=== PATIENT | female | born 1985 ===

== ENCOUNTER 2023-01-04 09:42 | Outpatient (AMB) | payer OTHER, SELFPAY ==
--- NOTE | 2023-01-04 10:09 | MHC.PC.OV ---
Vital Signs 01/04/23 10:11 Height 5 ft 3 in Weight 164 lb 2 oz BMI 29.1 BP 108/70 Blood Pressure Location Lt brachial Position Sitting Pulse 84 Pulse Source Pulse Oximeter Pulse Oximetry (%) 96 Oxygen Delivery Method Room Air Intake Visit Reasons: New patient-requesting physical Intake Note: pt is here to Est care pt does not want flu vaccine pt see's [facility] Is last menstrual period known: Yes (pt is coming off of the depo so she has had it for about a month ) Allergies No Known Allergies Allergy (Unknown, Unverified 01/04/23 10:29) Medication List - Last Reconciled 01/04/23 by Karmen Sesay MD No Known Home Meds Tobacco use date assessed: 01/04/23 Dental Screening Dental Screen Date: 01/04/23 Did you have a dental visit in the last 12 months?: No Did you have a dental problem in the last 6 months where you did not have access to dental care?: No Was dental information given to patient?: Patient has dentist HPI New patient-requesting physical HPI Details 37-year-old lady, new to practice, here to establish care with new PCP and for physical exam. Patient does not want to get flu vaccine, had 1 dose of COVID vaccine/Moderna, applying to get a booster. [facility] and [facility]. Was placed on Depo-Provera 3 months ago, but gained approximately 20 lb after she started getting the shots , and stopped using it approximately 4 weeks ago. Still not having irregular. , still having vaginal spotting see she stopped Depo injection. Complaining of urinary frequency and dysuria present for the last 2 days accompanied by lower abdominal pain. Being fever, no nausea or vomiting reported. Patient also complaining of sore throat mainly on the right side, saw white spots in her right tonsills. Complains of a painful mass in her right lower back which moves, gets worse when she bends or lifts anything heavy. Would like it to get it removed PENDING SALE TO [facility] Medical History (Updated 01/04/23 @ 11:18 by Karmen Sesay MD) Generalized anxiety disorder Mass of subcutaneous tissue of back UTI (urinary tract infection) History of anemia Overweight (BMI 25.0-29.9) Surgical History (Updated 01/04/23 @ 10:41 by Karmen Sesay MD) No pertinent past surgical history Family History (Updated 01/04/23 @ 10:49 by Karmen Sesay MD) Maternal Aunt Generalized anxiety disorder Mother Generalized anxiety disorder Maternal Aunt Breast cancer, Onset Age: 45 Social History (Updated 01/04/23 @ 10:36 by Karmen Sesay MD) Housing: Apartment Alcohol intake: current Alcohol intake frequency: holidays/special occasions only Alcohol type: wine Patient Tobacco Use Status: Former Tobacco user Quit Date: 7 years ago e-Cigarette/Vaping Use: Never Used Second Hand Smoke Exposure: No Substance Use Type: Marijuana service: No Current occupational status: employed Current occupation: [employer] Current occupational exposures/hazards: No Cognitive needs: No Hearing needs: No Vision needs: No Female Reproductive History Menstrual control method: permanent sterilization Permanent Sterilization: Vasectomy Other: Has been off Depo a month ago, does not want to be on it due to weight gain, still having spotting since stopping the medication Questionnaire PHQ-9 Over the last 2 weeks, how often have you been bothered by any of the following problems? 1. Little interest or pleasure in doing things: not at all 2. Feeling down, depressed, or hopeless: not at all 3. Trouble falling or staying asleep, or sleeping too much: several days 4. Feeling tired or having little energy: not at all 5. Poor appetite or overeating: not at all 6. Feeling bad about yourself - or that you are a failure or have let yourself or your family down: not at all 7. Trouble concentrating on things, such as reading the newspaper or watching television: not at all 8. Moving or speaking so slowly that other people could have noticed. Or the opposite - being so fidgety or restless that you have been moving around a lot more than usual: not at all 9. Thoughts that you would be better off or of hurting yourself in some way: not at all Total score: 1 Depression Screening Interpretation: Negative Depression Screening Done: Yes Source: Developed by Drs. Carlos Koenig, Alysha Finnegan, Ismael Jones and colleagues, with an educational david from [employer]. Thrive Questionnaire Date Thrive assessed: 01/04/23 I am a: Patient What is your living situation today?: I have a steady place to live Within the past 12 months, did the food you bought not last and you didn't have the money to get more?: Never true Within the past 12 months, did you worry whether your food would run out before you got money to buy more?: Never true Do you have trouble paying for medicines?: No Do you have trouble getting transportation to medical appointments?: No Do you have trouble paying your heating and electricity bill?: No Do you have trouble taking care of your child, family member or friend?: No Do you have trouble with day-to-day activities such as bathing, preparing meals, shopping, managing finances, etc.?: No Are you currently unemployed and looking for a job?: No Are you interested in more education?: No Please select the resources that you would like help with: None AUDIT C Alcohol Use Questionnaire (AUDIT-C) 1. How often do you have a drink containing alcohol?: Monthly or less 2. How many drinks containing alcohol do you have on a typical day when you are drinking?: 1 or 2 3. How often do you have six or more drinks on one occasion?: Never Total Score: 1 Score Reviewed/Action Taken: Yes NGUYEN-7 AMB Questionnaire NGUYEN-7 Date NUGYEN - 7 assessed: 01/04/23 Feeling nervous, anxious, or on edge: 2 = More than half the days Not being able to stop or control worryin = Several days Worrying too much about different things: 1 = Several days Trouble relaxin = Several days Being so restless that it is hard to sit still: 0 = Not at all Becoming easily annoyed or irritable: 1 = Several days Feeling afraid as if something awful might happen: 0 = Not at all Total NGUYEN-7 score (0-4 normal; 5-9 mild; 10-14 moderate; 15-21 severe): 6 Source: Developed by Drs. Carlos Koenig, Alysha Finnegan, Ismael Jones and colleagues, with an educational david from [employer] NGUYEN-7 Assessment Billing NGUYEN-7 Assessment Tool: NGUYEN-7 Assessment 44197 Review of Systems Const Denies body aches, Denies fatigue, Denies fever(s), Denies headache(s) and Denies weakness Eyes Denies change in vision, Denies eye discharge and Denies itchy eyes ENT Denies dizziness, Denies headache(s), Denies nasal congestion, Denies nasal discharge and Denies sore throat Card Denies chest pain, Denies lightheadedness, Denies palpitations and Denies dyspnea Resp Denies chest congestion, Denies cough, Denies dyspnea and Denies wheezing GI Denies abdominal pain, Denies change in bowel habits and Denies heartburn Reports no additional complaints and Reports as per HPI Musc Reports as per HPI Skin/Breast Denies breast pain, Denies breast mass, Denies lesions and Denies rash Neuro Denies dizziness, Denies headache(s) and Denies weakness Psych Reports as per HPI Endo Denies fatigue, Denies polydipsia, Denies polyuria and Denies palpitations Nik/Lymph Denies easy bruising Aller/Immun Denies itchy eyes, Denies seasonal rhinorrhea and Denies wheezing Physical exam (Primary Care) Vital Signs: Last Vital Signs Pulse 84 01/04/23 10:11 BP 108/70 01/04/23 10:11 Pulse Ox 96 01/04/23 10:11 Oxygen Delivery Method Room Air 01/04/23 10:11 BMI result Body Mass Index 29.1 Tobacco/Smoking Status: Tobacco use Status Tobacco use date assessed 01/04/23 01/04/23 10:14 Patient Tobacco Use Status Former Tobacco user 01/04/23 10:36 e-Cigarette/Vaping Use Never Used 01/04/23 10:36 PHQ-9: PHQ-9 Score PHQ-9: Total score 1 01/04/23 11:07 Depression Screening Interpretation: Negative Thrive Assessment: Date of Thrive Assessment Date Thrive assessed 01/04/23 01/04/23 10:45 Const General: no acute distress and alert Nutritional Appearance: overweight Orientation/consciousness: patient oriented x3 HENMT Head: Yes normocephalic and Yes atraumatic Ears: external ears normal, TM's normal bilaterally and EAC's normal General nose exam: Normal external nose present and No nasal discharge present Face and sinus: Yes face symmetric Mouth: Normal oral and palatal mucosa present, lip normal, tongue normal, oropharynx normal and moist mucous membranes Throat: Yes abnormal tonsil (Slight erythema and faint white spots on right tonsil, negative strep) Eyes General: appearance normal, both eyes and all related structures Eyelids: Yes eyelids normal Conjunctivae: conjunctivae normal Sclerae: sclerae normal Pupils: Equal, round and reactive pupils present EOM: EOMs intact bilaterally Neck Neck: Yes full ROM, Yes no lymphadenopathy and Yes supple Thyroid: Thyroid normal Chest Chest palpation & inspection: normal inspection of the chest Breast/axilla inspection: normal inspection of the breasts Breast/axilla palpation: normal palpation of the breasts Resp Effort & Inspection: normal respiratory effort and able to speak in complete sentences Auscultation: clear to auscultation bilaterally Cardio Rate: regular rate Rhythm: regular rhythm Heart sounds: S1 normal heart sound present and S2 normal heart sound present GI Palpation (GI): Soft to palpation, Tenderness to palpation present (GI) (Suprapubic area), no guarding and no masses Auscultation: normal bowel sounds General: Yes no CVA tenderness Back/Spine/Pelvis Back: no CVA tenderness and No back tenderness Skin General skin exam: no rashes or lesions noted Neuro General: patient oriented x3, gait normal, moves all extremities, Normal light touch and pain sensation, no focal motor deficits and CN's II-XI intact bilaterally Cranial nerves: Yes Equal, round and reactive pupils present Cognition (Neuro): normal cognition Gait exam (Neuro): Normal gait present Motor exam (neuro): 5/5 motor strength present throughout Extrem General: Yes normal to inspection, Yes full ROM, Yes no joint enlargement, Yes no pedal edema and Yes normal gait Psych Appearance: grossly normal and well kempt Mental Status: mental status grossly normal Speech and movement: Normal speech and movement present Affect: normal affect Attitude: cooperative Thought process: Normal thought process present Thought content: Normal thought content present Insight: Good insight present (Psych) Judgement: Good judgement present (Psych) Results AMB Rapid Strep AMB Rapid Strep Negative Last Edit by Mely Hinds CMA on 01/04/23 11:03 AMB Urinalysis, Automated UA Leukoctes 125 Opal/uL Last Edit by Mely Hinds CMA on 01/04/23 11:06 UA Nitrite Negative Last Edit by Mely Hinds CMA on 01/04/23 11:06 UA Urobilinogen 0.2 mg/dL Last Edit by Mely Hinds CMA on 01/04/23 11:06 UA Protein 15 mg/dL Last Edit by Mely Hinds, ANTONIO on 01/04/23 11:06 UA pH 7.0 Last Edit by Mely Hinds, ANTONIO on 01/04/23 11:06 UA Blood 200 Quentin/uL Last Edit by Mely Hinds, ANTONIO on 01/04/23 11:06 UA Specific Sutton 1.015 Last Edit by Mely Hinds, ANTONIO on 01/04/23 11:06 UA Ketone Negative Last Edit by Mely Hinds, [employer] FACULTY MEMBER on 01/04/23 11:06 UA Bilirubin 0 mg/dL Last Edit by Mely Hinds, ANTONIO on 01/04/23 11:06 UA Glucose 0 mg/dL Last Edit by Mely Hinds, ANTONIO on 01/04/23 11:06 Results Reviewed Results Reviewed: Laboratory Last Values Urine pH (Auto) 7.0 01/04/23 11:03 Specific Sutton (Auto) 1.015 01/04/23 11:03 Urine Protein (Auto) 15 mg/dL 01/04/23 11:03 Glucose (UA)(Auto) 0 mg/dL 01/04/23 11:03 Urine Ketones (Auto) Negative 01/04/23 11:03 Urine Blood (Auto) 200 Quentin/uL 01/04/23 11:03 Urine Nitrite (Auto) Negative 01/04/23 11:03 Urine Bilirubin (Auto) 0 mg/dL 01/04/23 11:03 Urine Urobilinogen (Auto) 0.2 mg/dL 01/04/23 11:03 Leukocyte Esterase (Auto) 125 Opal/uL 01/04/23 11:03 Strep Scn Rapid Clinic Negative 01/04/23 11:03 Assessment and Plan Assessment & Plan (1) Adult general medical exam: Code(s): Z00.00 - Encounter for general adult medical examination without abnormal findings Plan: Will check appropriate labs. Continue regular dental visit every 6 months and regular eye exams, at least every 2 years. Take adequate calcium in diet and vitamin-D 3 at 2000 IU per cap once a day, in addition to weight-bearing exercises to help maintain good muscle tone and weight control. Instructed to do self-breast exam, and recommended to get yearly mammogram, starting at age 40. Does not want to get flu shot, will schedule appointment for to get her COVID booster, up-to-date with her Tdap, patient states she got it from her [facility]. She gets her cervical cancer screening and routine Pap done at [facility] (2) Dysuria: Code(s): R30.0 - Dysuria (3) Urinary frequency: Code(s): R35.0 - Frequency of micturition (4) Mass of subcutaneous tissue of back: Code(s): R22.2 - Localized swelling, mass and lump, trunk Plan: Referred to general surgery for evaluation and possible excision of mass (5) UTI (urinary tract infection): Code(s): N39.0 - Urinary tract infection, site not specified Plan: Started on Bactrim DS 1 tablet every 12 hours for 10 days. Drink plenty of water, return to clinic if no improvement of symptoms (6) Encounter for vitamin deficiency screening: Code(s): Z13.21 - Encounter for screening for nutritional disorder (7) Generalized anxiety disorder: Code(s): F41.1 - Generalized anxiety disorder (8) Sore throat (viral): Code(s): J02.8 - Acute pharyngitis due to other specified organisms; B97.89 - Other viral agents as the cause of diseases classified elsewhere Plan: Rapid strep test came back negative. Advised to do so in gargles, ibuprofen as needed for pain Orders: Orders Vitamin D 25-OH Total Today Z13.21 - Encounter for screening for nutritional disorder AMB Rapid Strep Screen Today Z13.9 - Encounter for screening, unspecified Lipid Panel Today Z00.00 - Encounter for general adult medical examination without abnormal findings Glucose Fasting Today Z00.00 - Encounter for general adult medical examination without abnormal findings UA CC w/rflx Micro + Cult Today R30.0 - Dysuria, R35.0 - Frequency of micturition Complete Blood Count Auto Diff Today Z86.2 - Personal history of diseases of the blood and blood-forming organs and certain disorders involving the immune mechanism AMB Urinalysis Automated Today N39.0 - Urinary tract infection, site not specified Referrals General Surgery Referral R22.2 - Localized swelling, mass and lump, trunk Medications: New sulfamethoxazole-trimethoprim 800-160 mg (Bactrim DS) 1 tab PO Q12H 20 tabs 0RF 10 days N39.0 - Urinary tract infection, site not specified Coding Level of Care Code New Pt Prev Care 18-39yr(46076 Diagnoses Adult general medical exam Z00.00 Dysuria R30.0 Urinary frequency R35.0 Mass of subcutaneous tissue of back R22.2 UTI (urinary tract infection) N39.0 Encounter for vitamin deficiency screening Z13.21 Generalized anxiety disorder F41.1 Sore throat (viral) J02.8; B97.89 Additional Codes NGUYEN-7 Assessment Billing - NGUYEN-7 Assessment Tool: NGUYEN-7 Assessment 85999 ([id number])
[2023-01-04 10:11] VITALS: BP 108/70; PULSE 84; O2SAT 96; BMI 29.1
== END 2023-01-04 11:25 | disposition home or self-care (01) ==
PROVIDERS: Visit Provider Internal Medicine
DX: Z00.00 Encounter for general adult medical examination without abnormal findings (principal); R30.0 Dysuria; R35.0 Frequency of micturition; J02.9 Acute pharyngitis, unspecified; R22.2 Localized swelling, mass and lump, trunk; N39.0 Urinary tract infection, site not specified; Z13.21 Encounter for screening for nutritional disorder; F41.1 Generalized anxiety disorder; J02.8 Acute pharyngitis due to other specified organisms; B97.89 Other viral agents as the cause of diseases classified elsewhere
CPT/HCPCS: 81003; 87880; 99385

== ENCOUNTER 2023-01-04 11:09 | Outpatient (REF) | payer OTHER, SELFPAY ==
[2023-01-04 13:16] LABS: MANUAL DIFF FLAG NO
[2023-01-04 13:22] LABS: Basophils Percent Auto 0.2 % (0-2); Eosinophils Absolute Auto 0.1 X10*3/uL (0.0-0.4); Eosinophils Percent Auto 0.5 % (0-4); Hemoglobin 12.8 g/dl (12.0-16.0); Imm Gran Abs Auto 0.03 X10*3/uL (0.00-0.03); Imm Gran Pct Auto 0.3 % (0.0-0.4); Lymphocytes Absolute Auto 1.5 X10*3/uL (1.2-4.9); Lymphocytes Percent Auto 15.8 % (20-40); Mean Platelet Volume 11.6 fL (9.4-12.3); Monocytes Absolute Auto 0.5 X10*3/uL (0.1-1.2); Monocytes Percent Auto 5.6 % (2-11); Neutrophils Absolute Auto 7.5 x10*3/uL (2.0-8.3); Neutrophils Percent Auto 77.6 % (45-73); Platelet Count 285 X10*3/uL (160-400); White Blood Count 9.7 X10*3/uL (4.8-10.8)
[2023-01-04 13:44] LABS: Appearance Urine Cloudy; Color Urine Yellow; Glucose Urine UA Negative (Negative); Leukocyte Esterase Urine Moderate (2+) (Negative); Nitrite Urine Negative (Negative); PH 7.5 (5.0-9.0); Specific Gravity - Urine 1.015 (1.005-1.025); UMIC TRIGGER UACC YES; Urine Blood Large (3+) (Negative); Urine Ketones Negative (Negative); Urine Protein Trace mg/dL (Neg-Trace)
[2023-01-04 14:00] LABS: Bacteria Urine 4+ (None Seen); Hyaline Casts Urine 0-2 /LPF (0-2); RBC Urine 0-2 /HPF (0-2); Squamous Epithelial Cell Urine 0-2 /HPF (0-2); UACC Culture Trigger YES; WBC Urine >50 /HPF (0-5)
[2023-01-04 14:43] LABS: Cholesterol 158 mg/dL (<200); Glucose Fasting 80 mg/dL (60-99); HDL Cholesterol 51 mg/dL (>40); LDL Cholesterol Calculated 89 mg/dL (<100); Triglycerides 91 mg/dL (<150)
[2023-01-04 14:46] LABS: Vitamin D 25-OH Total 21.8 ng/mL (>30)
== END 2023-01-04 11:10 | disposition home or self-care (01) ==
LOC: HO.HMGCLDS 11:09
PROVIDERS: PCP Internal Medicine; Visit Provider Internal Medicine
DX: Z00.00 Encounter for general adult medical examination without abnormal findings (principal); N39.0 Urinary tract infection, site not specified; Z86.2 Personal history of diseases of the blood and blood-forming organs and certain disorders involving the immune mechanism; Z13.21 Encounter for screening for nutritional disorder
CPT/HCPCS: 36415; 80061; 81001; 82306; 82947; 85025; 87086; 87088; 87186

== ENCOUNTER 2023-01-15 08:58 | Outpatient (AMB) | payer OTHER, SELFPAY ==
[2023-01-15 09:00] VITALS: BP 109/62; PULSE 77; BMI 29.8
--- NOTE | 2023-01-15 09:00 | MHC.OFFVIS ---
Intake Vital Signs 01/15/23 09:00 Height 5 ft 3 in Weight 168 lb BMI 29.8 BP 109/62 Blood Pressure Location Rt brachial Position Sitting Pulse 77 Intake Visit Reasons: Nodular mass~Lt lower back Intake Note: Patient here for nodular mass on lt lower back. Has been present for 2yrs. C/o nerve pinching at it and is painful. 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 She has had this several years time. His increasing size, become more symptomatic. SHe wished to have it excised. Chart was reviewed patient evaluated [facility] Medical History Generalized anxiety disorder Mass of subcutaneous tissue of back UTI (urinary tract infection) History of anemia Overweight (BMI 25.0-29.9) Surgical History No pertinent past surgical history Family History Maternal Aunt Generalized anxiety disorder Mother Generalized anxiety disorder Maternal Aunt Breast cancer, Onset Age: 45 Social History Housing: Apartment Alcohol intake: current Alcohol intake frequency: holidays/special occasions only Alcohol type: wine Patient Tobacco Use Status: Former Tobacco user Quit Date: 7 years ago e-Cigarette/Vaping Use: Never Used Second Hand Smoke Exposure: No Substance Use Type: Marijuana service: No Current occupational status: employed Current occupation: [employer] Current occupational exposures/hazards: No Cognitive needs: No Hearing needs: No Vision needs: No Physical Exam Vital Signs: Last Vital Signs Pulse 77 01/15/23 09:00 BP 109/62 01/15/23 09:00 BMI result Body Mass Index 29.8 Back/Spine/Pelvis Other: Back exam is most noteworthy for approximately 4 x 3 cm left lower back lipoma. Office Procedures Excision Details: Risks, benefits, alternatives of excision of left the back lipoma reviewed with the patient included but not limited to bleeding, infection, recurrence, numbness, pain, scarring, wound dehiscence, seroma and the patient wishes to proceed. All questions were answered. After appropriate positioning, patient underwent 1% lidocaine and Betadine prep and a transverse incision was made over the lipoma of the left lower back. Uneventful enucleation of a lipoma measuring approximately 4 x 3 cm was uneventfully enucleated. Specimen sent to pathology. Wounds irrigated, secured hemostasis, and closed using running subcuticular 3-0 Vicryl suture followed by Steri-Strips and sterile dressings. Patient tolerated procedure well. 77123-hinnt/arms/legs 3.1-4cm Procedure code (CPT) selection complete Office Meds lidocaine 1 %-epinephrine 1:100,000 injection solution Performing Provider: Indra Majano MD Performing Location: [facility] General Surgeons Administered by: Indra Majano MD on 01/15/23 09:40 Dose Route Admin Location Dispensed Lot Number Expiration Date [facility] Pest Control Service Technician 30 mL Infiltration 30 mL Assessment & Plan Assessment & Plan (1) Mass of subcutaneous tissue of back: Code(s): R22.2 - Localized swelling, mass and lump, trunk Plan: Patient has been given local instructions including avoiding strenuous activities for next week, ice to the wound p.r.n., may shower in 2 days removing only outside dressing leaving Steri-Strips intact. . Patient will see me as directed or p.r.n.. Orders: Orders AMB Excision Today R22.2 - Localized swelling, mass and lump, trunk Coding Level of Care Code New Pt Level 4 (08476) Diagnoses Mass of subcutaneous tissue of back R22.2 CPT Codes Trunk/Arms/Legs - CPT: 74576-xdjlf/arms/legs 3.1-4cm ([id number])
== END 2023-01-15 09:41 | disposition home or self-care (01) ==
PROVIDERS: PCP Internal Medicine; Referring Provider Internal Medicine; Visit Provider Surgery
DX: R22.2 Localized swelling, mass and lump, trunk (principal); D17.1 Benign lipomatous neoplasm of skin and subcutaneous tissue of trunk
CPT/HCPCS: 11406; 99204

== ENCOUNTER 2023-01-15 08:58 | Outpatient (REF) | payer OTHER, SELFPAY | END 2023-01-15 08:59 | disposition home or self-care (01) | LOC: HO.LNP 08:58 | PROVIDERS: PCP Internal Medicine; Referring Provider Internal Medicine; Visit Provider Surgery | DX: R22.2 Localized swelling, mass and lump, trunk (principal) | CPT/HCPCS: 11406; 88304 ==

== ENCOUNTER 2023-01-22 13:50 | Outpatient (AMB) | payer OTHER, SELFPAY ==
[2023-01-22 13:54] VITALS: BP 117/56; PULSE 88; BMI 29.6
--- NOTE | 2023-01-22 13:54 | A.OFFVIS_ITS ---
Intake Vital Signs 01/22/23 13:54 Height 5 ft 3 in Weight 167 lb BMI 29.6 BP 117/56 L Blood Pressure Location Rt brachial Position Sitting Pulse 88 Intake Visit Reasons: S/p Nodular mass~Lt lower back Intake Note: Patient here s/p exc on lower back. C Allergies No Known Allergies Allergy (Unknown, Unverified 01/22/23 13:56) HPI HPI Comments History of Present Illness Details Patient presents for follow-up. She has no wound issues or complaints. Pathology is benign. [facility] Medical History Generalized anxiety disorder Mass of subcutaneous tissue of back UTI (urinary tract infection) History of anemia Overweight (BMI 25.0-29.9) Surgical History No pertinent past surgical history Family History Maternal Aunt Generalized anxiety disorder Mother Generalized anxiety disorder Maternal Aunt Breast cancer, Onset Age: 45 Social History Housing: Apartment Alcohol intake: current Alcohol intake frequency: holidays/special occasions only Alcohol type: wine Patient Tobacco Use Status: Former Tobacco user Quit Date: 7 years ago e-Cigarette/Vaping Use: Never Used Second Hand Smoke Exposure: No Substance Use Type: Marijuana service: No Current occupational status: employed Current occupation: [employer] Current occupational exposures/hazards: No Cognitive needs: No Hearing needs: No Vision needs: No Physical Exam Vital Signs: Last Vital Signs Pulse 88 01/22/23 13:54 BP 117/56 L 01/22/23 13:54 BMI result Body Mass Index 29.6 Back/Spine/Pelvis Other: Wound healing very well, clean dry and intact. Assessment & Plan Assessment & Plan (1) Lipoma: Code(s): D17.9 - Benign lipomatous neoplasm, unspecified Plan Patient has been given local instructions, and will follow-up p.r.n. Coding Level of Care Code Global (56898) Diagnoses Lipoma D17.9
== END 2023-01-22 13:58 | disposition home or self-care (01) ==
PROVIDERS: PCP Internal Medicine; Visit Provider Surgery
DX: D17.9 Benign lipomatous neoplasm, unspecified (principal)
CPT/HCPCS: 99024

== ENCOUNTER → 2023-01-22 13:50 | Outpatient (BNVA) | payer OTHER, SELFPAY | PROVIDERS: PCP Internal Medicine; Visit Provider Surgery ==

== ENCOUNTER 2023-08-14 09:45 | Outpatient (AMB) | payer MEDICAID, SELFPAY ==
[2023-08-14 10:17] VITALS: BP 106/64; PULSE 74; TEMP 36.9; O2SAT 98
--- NOTE | 2023-08-14 10:17 | AM.OFFWIN_ITS ---
Intake Vital Signs 3 08/14/23 10:17 Height 5 ft 3 in BP 106/64 Blood Pressure Location Rt brachial Position Sitting Pulse 74 Pulse Source Pulse Oximeter Temp 98.5 F Temp Source Temporal Artery Scan Pulse Oximetry (%) 98 Intake Visit Reasons: EST/uti(lobby) Intake Note: pt is here for possible uti Patient Tobacco Use Status: Former Tobacco user Quit Date: 7 years ago Allergies No Known Allergies Allergy (Unknown, Verified 08/14/23 10:18) Medication List - Last Reconciled 08/14/23 by Marjorie Stallworth MD No Known Home Meds Do you need a note to return to daycare/school/sports/work: Yes HPI EST/uti(lobby) 2 HPI0 Details Patient is a 38 year female came in today to be evaluated for possible bladder kidney infection She said the symptoms started 3 weeks ago but she was trying to treat herself at home by drinking plenty of water But last night she woke up with fever and chills and back pain So decided to come in Patient has flank pain left more than right UA is positive for leuk esterase I am treating her for possible pyelonephritis With Levaquin 750 mg once a day for 10 days We will send in urine for culture Patient was also advised to repeat UA after finishing antibiotic. [facility] Medical History Generalized anxiety disorder UTI (urinary tract infection) History of anemia Overweight (BMI 25.0-29.9) Surgical History Mass of subcutaneous tissue of back No pertinent past surgical history Family History Maternal Aunt Generalized anxiety disorder Mother Generalized anxiety disorder Maternal Aunt Breast cancer, Onset Age: 45 Social History Housing: Apartment Alcohol intake: current Alcohol intake frequency: holidays/special occasions only Alcohol type: wine Patient Tobacco Use Status: Former Tobacco user Quit Date: 7 years ago e-Cigarette/Vaping Use: Never Used Second Hand Smoke Exposure: No Substance Use Type: Marijuana service: No Current occupational status: employed Current occupation: [employer] Current occupational exposures/hazards: No Cognitive needs: No Hearing needs: No Vision needs: No Review of Systems Const All systems reviewed & are unremarkable except as noted in HPI and below Physical Exam Vital Signs: Last Vital Signs Temp 98.5 F 08/14/23 10:17 Pulse 74 08/14/23 10:17 BP 106/64 08/14/23 10:17 Pulse Ox 98 08/14/23 10:17 Const General: no acute distress Orientation/consciousness: patient oriented x3 Eyes General: appearance normal, both eyes and all related structures Resp Effort & Inspection: normal respiratory effort and able to speak in complete sentences Back/Spine/Pelvis Back/spine/pelvis image: 2 1. Tender to percussion Neuro General: patient oriented x3 Psych Mental Status: mental status grossly normal Results AMB Urinalysis, Automated 2 UA Leukoctes 70 Opal/uL Last Edit by Carmelo Aaron CMA on 08/14/23 10:23 UA Nitrite Negative Last Edit by Carmelo Aaron CMA on 08/14/23 10:23 UA Urobilinogen 0.2 mg/dL Last Edit by Carmelo Aaron CMA on 08/14/23 10 :23 UA Protein 15 mg/dL Last Edit by Carmelo Aaron CMA on 08/14/23 10:23 UA pH 6.0 Last Edit by Carmelo Aaron CMA on 08/14/23 10:23 UA Blood 0 Quentin/uL Last Edit by Carmelo Aaron CMA on 08/14/23 10:23 UA Specific [place] 1.030 Last Edit by Carmelo Aaron CMA on 08/14/23 10:23 UA Ketone Positive Last Edit by Carmelo Aaron CMA on 08/14/23 10:23 UA Bilirubin 1 mg/dL Last Edit by Carmelo Aaron CMA on 08/14/23 10:23 UA Glucose 0 mg/dL Last Edit by Carmelo Aaron CMA on 08/14/23 10:23 Results Reviewed Results Reviewed: Laboratory Last Values Urine pH (Auto) 6.0 08/14/23 10:22 Specific [place] (Auto) 1.030 08/14/23 10:22 Urine Protein (Auto) 15 mg/dL 08/14/23 10:22 Glucose (UA)(Auto) 0 mg/dL 08/14/23 10:22 Urine Ketones (Auto) Positive 08/14/23 10:22 Urine Blood (Auto) 0 Quentin/uL 08/14/23 10:22 Urine Nitrite (Auto) Negative 08/14/23 10:22 Urine Bilirubin (Auto) 1 mg/dL 08/14/23 10:22 Urine Urobilinogen (Auto) 0.2 mg/dL 08/14/23 10:22 Leukocyte Esterase (Auto) 70 Opal/uL 08/14/23 10:22 Assessment & Plan Assessment & Plan (1) Acute pyelonephritis: Code(s): N10 - Acute pyelonephritis Plan Patient is a 38 year female came in today to be evaluated for possible bladder kidney infection She said the symptoms started 3 weeks ago but she was trying to treat herself at home by drinking plenty of water But last night she woke up with fever and chills and back pain So decided to come in Patient has flank pain left more than right UA is positive for leuk esterase I am treating her for possible pyelonephritis With Levaquin 750 mg once a day for 10 days We will send in urine for culture Patient was also advised to repeat UA after finishing antibiotic. Orders: Orders 2 Urine Culture Today Marjorie Stallworth MD N10 - Acute pyelonephritis AMB Urinalysis Automated Today Sierra Francisco NP Z13.9 - Encounter for screening, unspecified UA CC w/rflx Micro + Cult 10 Days Marjorie Stallworth MD N10 - Acute pyelonephritis Medications: New 2 levofloxacin no exercise while taking this medication especially running and jogging 500 mg (0.6667 x 750 mg) PO DAILY 10 days 10 tabs 0RF Marjorie Stallworth MD Coding Level of Care Code Est Pt Level 4 (21976) Diagnoses Acute pyelonephritis N10
== END 2023-08-14 10:51 | disposition home or self-care (01) ==
PROVIDERS: PCP Internal Medicine; Visit Provider Internal Medicine
DX: N10 Acute pyelonephritis (principal)
CPT/HCPCS: 81003; 99214

== ENCOUNTER 2023-08-14 13:41 | Outpatient (REF) | payer MEDICAID, SELFPAY ==
[2023-08-14 13:54] LABS: Appearance Urine Turbid; Color Urine Yellow; Glucose Urine UA Negative (Negative); Leukocyte Esterase Urine Small (1+) (Negative); Nitrite Urine Negative (Negative); Specific Gravity - Urine >= 1.030 (1.005-1.025); UMIC TRIGGER UACC YES; Urine Blood Negative (Negative); Urine Ketones Negative (Negative); Urine Protein Negative (Neg-Trace)
[2023-08-14 13:58] LABS: Bacteria Urine 4+ (None Seen); Hyaline Casts Urine 0-2 /LPF (0-2); RBC Urine 0-2 /HPF (0-2); UACC Culture Trigger YES; WBC Urine 0-5 /HPF (0-5)
== END 2023-08-14 13:42 | disposition home or self-care (01) ==
LOC: HO.LNP 13:41
PROVIDERS: Visit Provider Internal Medicine
DX: Z13.9 Encounter for screening, unspecified (principal)
CPT/HCPCS: 81001; 87086; 87088; 87186

== ENCOUNTER 2023-10-22 11:29 | Outpatient (AMB) | payer OTHER, SELFPAY ==
--- NOTE | 2023-10-22 11:35 | A.OFFPC_ITS ---
Vital Signs 10/22/23 11:36 Height 5 ft 3 in Weight 152 lb BMI 26.9 BP 100/64 Blood Pressure Location Lt brachial Position Sitting Pulse 87 Pulse Source Pulse Oximeter Pulse Oximetry (%) 95 Oxygen Delivery Method Room Air Intake Visit Reasons: numbness R side hand Intake Note: Pt is here today c/o Rt hand numbness and Lt thumb numbness no injury noted Allergies No Known Allergies Allergy (Unknown, Verified 10/22/23 12:12) Medication List - Last Reconciled 10/22/23 by Karmen Sesay MD No Known Home Meds Tobacco use date assessed: 10/22/23 Dental Screening Dental Screen Date: 10/22/23 Did you have a dental visit in the last 12 months?: No Did you have a dental problem in the last 6 months where you did not have access to dental care?: No Was dental information given to patient?: Patient has dentist HPI numbness R side hand HPI Details 38-year-old lady here today complaining pain stiffness in her right wrist, with numbness and tingling radiating up to the middle fingers of her right hand and ups to elbow. He has also been having intermittent episodes of pain left thumb on hyperextension. These episodes have been present now for the last several months and seems to be getting worse. 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 Has tried Tylenol and Motrin which affords only temporary relief. [facility] Medical History (Updated 10/22/23 @ 12:17 by Karmen Sesay MD) Trigger thumb, left thumb Numbness and tingling in right hand Generalized anxiety disorder UTI (urinary tract infection) History of anemia Overweight (BMI 25.0-29.9) Surgical History Mass of subcutaneous tissue of back No pertinent past surgical history Family History Maternal Aunt Generalized anxiety disorder Substance use disorder Mother Generalized anxiety disorder Maternal Aunt Breast cancer, Onset Age: 45 Mental health disorder Maternal Uncle Substance use disorder Mental health disorder Social History Housing: Apartment Alcohol intake: current Alcohol intake frequency: holidays/special occasions only Alcohol type: wine Patient Tobacco Use Status: Current everyday Tobacco user Tobacco use type: Cigarette e-Cigarette/Vaping Use: Never Used Second Hand Smoke Exposure: No Substance Use Type: Marijuana service: No Current occupational status: employed Current occupation: [employer] Current occupational exposures/hazards: No Cognitive needs: No Hearing needs: No Vision needs: No Questionnaire PHQ-9 Over the last 2 weeks, how often have you been bothered by any of the following problems? 1. Little interest or pleasure in doing things: not at all 2. Feeling down, depressed, or hopeless: not at all 3. Trouble falling or staying asleep, or sleeping too much: not at all 4. Feeling tired or having little energy: not at all 5. Poor appetite or overeating: not at all 6. Feeling bad about yourself - or that you are a failure or have let yourself or your family down: not at all 7. Trouble concentrating on things, such as reading the newspaper or watching television: not at all 8. Moving or speaking so slowly that other people could have noticed. Or the opposite - being so fidgety or restless that you have been moving around a lot more than usual: not at all 9. Thoughts that you would be better off or of hurting yourself in some way: not at all Total score: 0 Depression Screening Interpretation: Negative Depression Screening Done: Yes 01261 - PHQ-9 Billing: Yes Source: Developed by Drs. Carlos Koenig, Alysha Finnegan, Ismael Jones and colleagues, with an educational david from [employer]. Thrive Questionnaire Date Thrive assessed: 10/22/23 I am a: Patient What is your living situation today?: I have a steady place to live Within the past 12 months, did the food you bought not last and you didn't have the money to get more?: Never true Within the past 12 months, did you worry whether your food would run out before you got money to buy more?: Sometimes True Do you have trouble paying for medicines?: No Do you have trouble getting transportation to medical appointments?: No Do you have trouble paying your heating and electricity bill?: No Do you have trouble taking care of your child, family member or friend?: No Do you have trouble with day-to-day activities such as bathing, preparing meals, shopping, managing finances, etc.?: No Are you currently unemployed and looking for a job?: No Are you interested in more education?: No Please select the resources that you would like help with: Housing/Nursing Home Currently or been in a relationship where the following occur: No concerns reported THRIVE Score: 1 AUDIT C Alcohol Use Questionnaire (AUDIT-C) 1. How often do you have a drink containing alcohol?: Monthly or less 2. How many drinks containing alcohol do you have on a typical day when you are drinking?: 1 or 2 3. How often do you have six or more drinks on one occasion?: Never Total Score: 1 NGUYEN-7 AMB Questionnaire NGUYEN-7 Date NGUYEN - 7 assessed: 01/04/23 Feeling nervous, anxious, or on edge: 0 = Not at all Not being able to stop or control worryin = Not at all Worrying too much about different things: 0 = Not at all Trouble relaxin = Not at all Being so restless that it is hard to sit still: 0 = Not at all Becoming easily annoyed or irritable: 0 = Not at all Feeling afraid as if something awful might happen: 0 = Not at all Total NGUYEN-7 score (0-4 normal; 5-9 mild; 10-14 moderate; 15-21 severe): 0 Source: Developed by Drs. Carlos Koenig, Alysha Finnegan, Ismael Jones and colleagues, with an educational david from [employer]. NGUYEN-7 Assessment Billing NGUYEN-7 Assessment Tool: NGUYEN-7 Assessment [id number] Review of Systems Const All systems reviewed & are unremarkable except as noted in HPI and below Physical exam (Primary Care) Vital Signs: Last Vital Signs Pulse 87 10/22/23 11:36 BP 100/64 10/22/23 11:36 Pulse Ox 95 10/22/23 11:36 Oxygen Delivery Method Room Air 10/22/23 11:36 BMI result Body Mass Index 26.9 Tobacco/Smoking Status: Tobacco use Status Tobacco use date assessed 10/22/23 10/22/23 11:41 Patient Tobacco Use Status Current everyday Tobacco 10/22/23 11:41 Tobacco use type Cigarette 10/22/23 11:41 e-Cigarette/Vaping Use Never Used 10/22/23 11:41 PHQ-9: PHQ-9 Score PHQ-9: Total score 0 10/22/23 12:14 Depression Screening Interpretation: Negative Thrive Assessment: Date of Thrive Assessment Date Thrive assessed 10/22/23 10/22/23 11:41 Currently or been in a relationship where the following occur: No concerns reported Const Other: Alert oriented x3, no acute distress noted ambulatory normal gait Neck Neck: Yes full ROM, Yes no lymphadenopathy and Yes supple Thyroid: Thyroid normal (Nonpalpable) Chest Chest palpation & inspection: normal inspection of the chest Resp Auscultation: clear to auscultation bilaterally Cardio Other: S1-S2 present regular rate and rhythm Skin General skin exam: no rashes or lesions noted Extrem Other: Positive Tinel sign on the right, equivocal Phalen's., slight decreased range of motion in left 1st MCP joint Assessment and Plan Assessment & Plan (1) Numbness and tingling in right hand: Code(s): R20.0 - Anesthesia of skin; R20.2 - Paresthesia of skin Plan: Rule out carpal tunnel syndrome, nerve conduction study ordered. Patient given right wrist splint to wear at night especially when sleeping to avoid friction the median nerve on the right. Advised to try applying Salonpas patch to affected area in her wrist. Return to clinic for follow-up regarding results of nerve conduction study and if symptoms are not improving with conservative measures (2) Trigger thumb, left thumb: Code(s): M65.312 - Trigger thumb, left thumb Plan: Avoid repetitive movements . Try massaging diclofenac gel to affected area in left thumb to 2 3 times a day as needed for pain control. Resting of joint strongly advised. (3) Carpal tunnel syndrome of right wrist: Code(s): G56.01 - Carpal tunnel syndrome, right upper limb Plan: Large wrist splint given to patient wear at night. Nerve conduction study ordered Orders: Orders NE nerve conduction velocity 10/22/23 M65.312 - Trigger thumb, left thumb, R20.0 - Anesthesia of skin, R20.2 - Paresthesia of skin Coding Level of Care Code Est Pt Level 4 (10153) Diagnoses Numbness and tingling in right hand R20.0; R20.2 Trigger thumb, left thumb M65.312 Carpal tunnel syndrome of right wrist G56.01 Additional Codes NGUYEN-7 Assessment Billing - NGUYEN-7 Assessment Tool: NGUYEN-7 Assessment [id number] ([id number])
[2023-10-22 11:36] VITALS: BP 100/64; PULSE 87; O2SAT 95; BMI 26.9
== END 2023-10-22 13:05 | disposition home or self-care (01) ==
PROVIDERS: PCP Internal Medicine; Visit Provider Internal Medicine
DX: R20.0 Anesthesia of skin (principal); R20.2 Paresthesia of skin; M65.312 Trigger thumb, left thumb; G56.01 Carpal tunnel syndrome, right upper limb
CPT/HCPCS: 99214